=== PATIENT | male | born 1985 | race African-American/Black ===

== ENCOUNTER 2021-09-06 11:04 | Emergency (ER) | payer SELFPAY ==
[2021-09-06] MEDS ORDERED: Lidocaine 1% PF 5 ML VIAL ONE (12:20)
[2021-09-06] MEDS ORDERED: Lidocaine 1% w/Epinephrine 1:100K 20 ML VIAL ONE (12:20)
[2021-09-06] MEDS ORDERED: Azithromycin 250 MG TAB ONE (12:22)
[2021-09-06] MEDS ORDERED: cefTRIAXone\\ROCEPHIN 500 MG VIAL ONE (12:23)
== END 2021-09-06 13:10 | disposition home or self-care (01) ==
LOC: ERS 11:04
DX: K04.7 Periapical abscess without sinus (principal); N34.1 Nonspecific urethritis; F17.210 Nicotine dependence, cigarettes, uncomplicated
CPT/HCPCS: 41800; 96372; J0696

== ENCOUNTER 2021-09-20 18:22 | Emergency (ER) | payer SELFPAY ==
[2021-09-20] MEDS ORDERED: Acetaminophen 500 MG TAB ONE (18:34)
[2021-09-21 12:29] LABS: SARS-CoV-2 PCR by NAA DETECTED (NotDetected)
== END 2021-09-20 18:37 | disposition home or self-care (01) ==
LOC: ERS 18:22
DX: U07.1 COVID-19 (principal); F17.210 Nicotine dependence, cigarettes, uncomplicated
CPT/HCPCS: 99283; U0003; U0005